=== PATIENT | male | born 1990 | race Asian ===

== ENCOUNTER 2016-08-29 15:13 | Emergency (ER) | payer OTHER ==
[~2016-08-29] VITALS: Ht 177.8 cm; Wt 54.4 kg
[~2016-08-29 15:13] MED LIST: CELLCEPT500 MG PO; MUPI2OIN2 TOP; PREDNISONE10 M1 PO; PROGRAF1 MG OR; RENVELA800 MG OR; TRAM50TA PO; TRIM800T12 PO; VITAMIN D50000 UNT PO
[2016-08-29 15:30] VITALS: BP 100/59; TEMP 97.9
== END 2016-08-29 18:01 | disposition home or self-care (01) ==
LOC: ED 15:13
DX: L02.03 Carbuncle of face (principal)
CPT/HCPCS: 99282

== ENCOUNTER 2016-09-08 15:54 | Outpatient (CLI) | payer OTHER ==
[2016-09-08 16:20] LABS: POTASSIUM 3.7 mmol/L (3.6-5.2)
[2016-09-08 16:25] LABS: PLATELET COUNT 189 K/uL (142-355)
== END 2016-09-08 19:17 | disposition home or self-care (01) ==
LOC: LABW 15:54
PROVIDERS: Nurse Practitioner Family
DX: Z79.899 Other long term (current) drug therapy (principal); Z51.81 Encounter for therapeutic drug level monitoring
CPT/HCPCS: 36415; 80053; 85027

== ENCOUNTER 2017-05-11 17:17 | Emergency (ER) | payer OTHER ==
[~2017-05-11] VITALS: Ht 165.1 cm; Wt 54.4 kg
[2017-05-11 19:42] LABS: PLATELET COUNT 183 K/uL (142-355)
[2017-05-11 20:30] VITALS: BP 105/49; TEMP 97.9
== END 2017-05-11 20:30 | disposition home or self-care (01) ==
LOC: ED 17:17
PROVIDERS: Specialist
DX: R52 Pain, unspecified (principal); N18.9 Chronic kidney disease, unspecified
CPT/HCPCS: 36415; 80048; 85027; 87804; 99283

== ENCOUNTER 2017-05-22 03:34 | Emergency (ER) | payer OTHER ==
[~2017-05-22] VITALS: Ht 165.1 cm; Wt 54.4 kg
[2017-05-22 04:09] LABS: PLATELET COUNT 138 K/uL (142-355)
[2017-05-22 04:19] LABS: POTASSIUM 4.2 mmol/L (3.6-5.2)
[2017-05-22 05:09] VITALS: BP 108/67; TEMP 98.1
== END 2017-05-22 05:12 | disposition home or self-care (01) ==
LOC: ED 03:34
PROVIDERS: Family Medicine
DX: J45.909 Unspecified asthma, uncomplicated (principal); N18.9 Chronic kidney disease, unspecified; Z94.0 Kidney transplant status; J01.00 Acute maxillary sinusitis, unspecified
CPT/HCPCS: 36415; 80053; 85027; 87081; 87804; 87880; 96372; 99283; J0696

== ENCOUNTER 2017-08-07 03:15 | Emergency (ER) | payer OTHER ==
[2017-08-07] MEDS ORDERED: RENVELA800 MG OR (16:24)
== END 2017-08-07 04:50 | disposition home or self-care (01) ==
LOC: ED 03:15
DX: R10.9 Unspecified abdominal pain (principal)

== ENCOUNTER 2017-08-07 15:37 | Inpatient (IN) | payer OTHER ==
[~2017-08-07] VITALS: Ht 157.5 cm; Wt 53.1 kg
[2017-08-07 16:21] VITALS: BP 103/64; TEMP 99
[2017-08-07] MEDS ORDERED: RENVELA800 MG OR (16:24)
[2017-08-07 17:48] LABS: PLATELET COUNT 214 K/uL (142-355)
[2017-08-07 18:00] LABS: POTASSIUM 3.6 mmol/L (3.6-5.2)
[2017-08-07 21:23] VITALS: BP 96/61; TEMP 98.3
[2017-08-07 22:58] VITALS: BP 109/69; TEMP 98.3; Ht 157.5 cm; Wt 53.1 kg
[2017-08-08] VITALS: BP 91/42; TEMP 97.4
[2017-08-08 04:00] VITALS: BP 91/49; TEMP 97.8
[2017-08-08 06:40] LABS: PLATELET COUNT 167 K/uL (142-355)
[2017-08-08 06:52] LABS: POTASSIUM 3.7 mmol/L (3.6-5.2)
[2017-08-08 08:00] VITALS: BP 90/52; TEMP 97.5
[2017-08-08 12:00] VITALS: BP 92/52; TEMP 97.8
[2017-08-08 20:00] VITALS: BP 102/53; TEMP 98.2
[2017-08-09] VITALS: BP 101/69; TEMP 98.1
[2017-08-09 04:00] VITALS: BP 100/54; TEMP 98.1
[2017-08-09 07:41] LABS: POTASSIUM 4.1 mmol/L (3.6-5.2)
[2017-08-09 07:48] LABS: PLATELET COUNT 172 K/uL (142-355)
[2017-08-09 08:09] VITALS: BP 103/79; TEMP 97.5
[2017-08-09 12:00] VITALS: BP 102/62; TEMP 97.8
[2017-08-09 16:00] VITALS: BP 102/59; TEMP 98.3
[2017-08-09 20:00] VITALS: BP 93/53; TEMP 98.2
[2017-08-10] VITALS: BP 86/39; TEMP 98.1
[2017-08-10 04:00] VITALS: BP 102/57; TEMP 97.3
[2017-08-10 05:32] LABS: PLATELET COUNT 172 K/uL (142-355)
[2017-08-10 06:00] LABS: POTASSIUM 3.9 mmol/L (3.6-5.2)
[2017-08-10 08:00] VITALS: BP 117/70; TEMP 98.3
[2017-08-10 12:22] VITALS: BP 98/50; TEMP 97.9
== END 2017-08-10 20:25 | disposition home or self-care (01) | DRG 682 ==
LOC: ED 15:37 → MED/SURG 21:47
PROVIDERS: Specialist; ADMIT Family Medicine
PROC: 5A1D70Z Performance of Urinary Filtration, Intermittent, Less than 6 Hours Per Day (ICD-10-PCS; 2017-08-08)
PROC: 5A1D70Z Performance of Urinary Filtration, Intermittent, Less than 6 Hours Per Day (ICD-10-PCS; principal; 2017-08-10)
DX: N18.6 End stage renal disease (principal); K85.90 Acute pancreatitis without necrosis or infection, unspecified; N30.81 Other cystitis with hematuria; Z87.448 Personal history of other diseases of urinary system; E83.51 Hypocalcemia; N39.0 Urinary tract infection, site not specified; B96.20 Unspecified Escherichia coli [E. coli] as the cause of diseases classified elsewhere; D64.89 Other specified anemias
CPT/HCPCS: 36415; 80053; 80307; 81000; 82150; 83690; 83735; 84100; 85027; 87077; 87086; 87088; 87186; 93005; 96375; 99283; J0885; J1644; J2175; J2405

== ENCOUNTER 2017-09-13 17:12 | Emergency (ER) | payer OTHER ==
[~2017-09-13] VITALS: Ht 165.1 cm; Wt 59.0 kg
[2017-09-13 17:32] VITALS: BP 100/58; TEMP 98
[2017-09-13 18:56] LABS: PLATELET COUNT 170 K/uL (142-355)
[2017-09-13 19:13] LABS: POTASSIUM 4.1 mmol/L (3.6-5.2)
== END 2017-09-13 19:36 | disposition home or self-care (01) ==
LOC: ED 17:12
DX: R11.2 Nausea with vomiting, unspecified (principal); R19.7 Diarrhea, unspecified; R10.13 Epigastric pain
CPT/HCPCS: 36415; 80053; 82150; 83690; 85027; 99283

== ENCOUNTER 2017-10-31 18:54 | Emergency (ER) | payer OTHER ==
[~2017-10-31] VITALS: Ht 167.6 cm; Wt 56.7 kg
[2017-10-31 19:09] VITALS: TEMP 97.3
[2017-10-31 19:44] LABS: PLATELET COUNT 246 K/uL (142-355)
[2017-10-31 20:01] LABS: POTASSIUM 3.5 mmol/L (3.6-5.2)
[2017-10-31 20:56] VITALS: BP 88/42
== END 2017-10-31 20:56 | disposition home or self-care (01) ==
LOC: ED 18:54
DX: I95.9 Hypotension, unspecified (principal); E86.1 Hypovolemia; N18.6 End stage renal disease
CPT/HCPCS: 80053; 85027; 96360; 99284

== ENCOUNTER 2017-11-05 21:16 | Emergency (ER) | payer OTHER ==
[~2017-11-05] VITALS: Ht 167.6 cm; Wt 54.4 kg
[2017-11-05 21:20] VITALS: TEMP 98.2
[2017-11-05 22:45] VITALS: BP 78/49
== END 2017-11-05 22:45 | disposition home or self-care (01) ==
LOC: ED 21:16
DX: G43.809 Other migraine, not intractable, without status migrainosus (principal)
CPT/HCPCS: 96365; 96374; 96375; 99284; J1100; J1200; J1885; J2405

== ENCOUNTER 2017-11-12 19:05 | Emergency (ER) | payer OTHER ==
[~2017-11-12] VITALS: Ht 167.6 cm; Wt 59.0 kg
[2017-11-12 21:52] LABS: PLATELET COUNT 246 K/uL (142-355)
[2017-11-12 21:57] LABS: POTASSIUM 4.1 mmol/L (3.6-5.2)
[2017-11-13 01:07] VITALS: BP 105/42; TEMP 98.5
== END 2017-11-13 01:10 | disposition home or self-care (01) ==
LOC: ED 19:05
PROVIDERS: Specialist
DX: N30.80 Other cystitis without hematuria (principal); R10.84 Generalized abdominal pain
CPT/HCPCS: 80053; 82150; 83690; 83735; 84100; 85027; 96372; 96374; 96375; 99283; J1170; J2405; J3370; Q9963

== ENCOUNTER 2017-11-14 21:21 | Emergency (ER) | payer OTHER ==
[~2017-11-14] VITALS: Ht 167.6 cm; Wt 54.0 kg
[2017-11-14 21:31] VITALS: TEMP 98.4
[2017-11-14 22:26] LABS: PLATELET COUNT 78 K/uL (142-355)
[2017-11-14 22:51] LABS: POTASSIUM 4.1 mmol/L (3.6-5.2)
[2017-11-14 23:18] VITALS: BP 105/60
== END 2017-11-14 23:18 | disposition home or self-care (01) ==
LOC: ED 21:21
DX: K29.70 Gastritis, unspecified, without bleeding (principal)
CPT/HCPCS: 36415; 80053; 82150; 83690; 85027; 99283

== ENCOUNTER 2018-01-04 18:06 | Outpatient (CLI) | payer OTHER | END 2018-01-04 18:11 | disposition short-term general hospital (02) | LOC: AMB 18:06 | DX: R55 Syncope and collapse (principal) | CPT/HCPCS: A0425; A0429 ==

== ENCOUNTER 2018-01-04 18:13 | Emergency (ER) | payer OTHER ==
[~2018-01-04] VITALS: Ht 165.1 cm; Wt 54.4 kg
[2018-01-04 18:15] VITALS: TEMP 97.9
[2018-01-04 20:42] VITALS: BP 80/71
== END 2018-01-04 20:42 | disposition home or self-care (01) ==
LOC: ED 18:13
DX: E86.0 Dehydration (principal); I95.89 Other hypotension
CPT/HCPCS: 96361; 96365; 96374; 99284; J1885

== ENCOUNTER 2018-03-12 08:57 | Emergency (ER) | payer OTHER ==
[~2018-03-12] VITALS: Ht 165.1 cm; Wt 54.4 kg
[2018-03-12 09:00] VITALS: TEMP 97.9
[2018-03-12 09:36] LABS: PLATELET COUNT 192 K/uL (142-355)
[2018-03-12 09:50] LABS: POTASSIUM 4.5 mmol/L (3.6-5.2)
[2018-03-12 10:30] VITALS: BP 102/58
== END 2018-03-12 10:30 | disposition home or self-care (01) ==
LOC: ED 08:57
PROVIDERS: Family Medicine
DX: J06.9 Acute upper respiratory infection, unspecified (principal); J20.9 Acute bronchitis, unspecified
CPT/HCPCS: 80053; 85027; 94664; 96372; 99283; J2930

== ENCOUNTER 2018-05-02 01:40 | Emergency (ER) | payer OTHER ==
[~2018-05-02] VITALS: Ht 165.1 cm; Wt 74.8 kg
[2018-05-02 02:16] LABS: PLATELET COUNT 284 K/uL (142-355)
[2018-05-02 02:35] LABS: POTASSIUM 4.3 mmol/L (3.6-5.2)
[2018-05-02 06:35] VITALS: BP 110/71; TEMP 97.8
== END 2018-05-02 06:35 | disposition home or self-care (01) ==
LOC: ED 01:40
DX: N30.00 Acute cystitis without hematuria (principal)
CPT/HCPCS: 36415; 80053; 85027; 96365; 96375; 99284; J0696; J2175; Q9963

== ENCOUNTER 2018-06-04 13:52 | Emergency (ER) | payer OTHER ==
[~2018-06-04] VITALS: Ht 165.1 cm; Wt 74.8 kg
[2018-06-04 16:02] LABS: PLATELET COUNT 184 K/uL (142-355)
[2018-06-04 16:14] LABS: POTASSIUM 4.2 mmol/L (3.6-5.2)
[2018-06-04 17:18] VITALS: BP 106/67; TEMP 98.2
== END 2018-06-04 17:19 | disposition home or self-care (01) ==
LOC: ED 13:52
PROVIDERS: Family Medicine
DX: S39.011A Strain of muscle, fascia and tendon of abdomen, initial encounter (principal)
CPT/HCPCS: 80053; 85027; 99283

== ENCOUNTER 2018-07-07 09:32 | Outpatient (CLI) | payer OTHER ==
[2018-07-07] MEDS ORDERED: ENTERIC COATED325 MG PO (09:58)
[2018-07-07] MEDS ORDERED: CALC667T2 PO (09:59)
[2018-07-07] MEDS ORDERED: MONDOXYNE NL100 MG PO (10:00)
[2018-07-07] MEDS ORDERED: MEGACE ES PO (10:01)
[2018-07-07] MEDS ORDERED: PREDNISONE5 MG PO (10:01)
[2018-07-07] MEDS ORDERED: TRAMADOL HYDROC50 MG PO (10:02)
[2018-07-07] MEDS ORDERED: TUMS500 MG PO (10:03)
[2018-07-07] MEDS ORDERED: MIDODRINE5 MG PO (10:04)
== END 2018-07-07 09:34 | disposition short-term general hospital (02) ==
LOC: AMB 09:32
DX: R07.89 Other chest pain (principal)
CPT/HCPCS: A0425; A0429

== ENCOUNTER 2018-07-07 09:39 | Emergency (ER) | payer OTHER ==
[~2018-07-07] VITALS: Ht 165.1 cm; Wt 51.0 kg
[2018-07-07 09:39] VITALS: TEMP 97.8
[2018-07-07] MEDS ORDERED: ENTERIC COATED325 MG PO (09:58)
[2018-07-07] MEDS ORDERED: CALC667T2 PO (09:59)
[2018-07-07] MEDS ORDERED: MONDOXYNE NL100 MG PO (10:00)
[2018-07-07] MEDS ORDERED: PREDNISONE5 MG PO (10:01)
[2018-07-07] MEDS ORDERED: MEGACE ES PO (10:01)
[2018-07-07] MEDS ORDERED: TRAMADOL HYDROC50 MG PO (10:02)
[2018-07-07] MEDS ORDERED: TUMS500 MG PO (10:03)
[2018-07-07] MEDS ORDERED: MIDODRINE5 MG PO (10:04)
[2018-07-07 10:59] LABS: PLATELET COUNT 188 K/uL (142-355)
[2018-07-07 11:39] LABS: POTASSIUM 3.1 mmol/L (3.6-5.2); SODIUM 136 mmol/L (136-145)
[2018-07-07 12:20] VITALS: BP 87/53
== END 2018-07-07 12:20 | disposition home or self-care (01) ==
LOC: ED 09:39
DX: R07.89 Other chest pain (principal); E87.6 Hypokalemia
CPT/HCPCS: 36415; 80053; 82550; 82553; 84484; 85027; 93005; 99284

== ENCOUNTER 2018-08-10 08:00 | Emergency (ER) | payer OTHER ==
[~2018-08-10] VITALS: Ht 165.1 cm; Wt 72.6 kg
[~2018-08-10 08:00] MED LIST changes: +CALC667T2 PO; +ENTERIC COATED325 MG PO; +MEGACE ES PO; +MIDODRINE5 MG PO; +MONDOXYNE NL100 MG PO; +PREDNISONE5 MG PO; +TRAMADOL HYDROC50 MG PO; +TUMS500 MG PO
[2018-08-10 08:28] VITALS: TEMP 97.6
[2018-08-10 09:19] VITALS: BP 100/59
== END 2018-08-10 09:19 | disposition home or self-care (01) ==
LOC: ED 08:00
DX: M79.18 Myalgia, other site (principal); M25.512 Pain in left shoulder; M25.511 Pain in right shoulder
CPT/HCPCS: 99281

== ENCOUNTER 2018-09-06 19:20 | Emergency (ER) | payer OTHER ==
[~2018-09-06] VITALS: Ht 165.1 cm; Wt 50.8 kg
[2018-09-06 19:25] VITALS: BP 90/48; TEMP 98.3
== END 2018-09-06 20:02 | disposition home or self-care (01) ==
LOC: ED 19:20
DX: L72.3 Sebaceous cyst (principal)
CPT/HCPCS: 99281

== ENCOUNTER 2018-11-11 17:25 | Emergency (ER) | payer OTHER ==
[~2018-11-11] VITALS: Ht 167.6 cm; Wt 54.4 kg
[2018-11-11 18:23] LABS: PLATELET COUNT 204 K/uL (142-355)
[2018-11-11 18:36] LABS: POTASSIUM 3.9 mmol/L (3.6-5.2)
[2018-11-11 18:51] VITALS: TEMP 98.3
[2018-11-11 19:08] VITALS: BP 85/47
== END 2018-11-11 19:17 | disposition home or self-care (01) ==
LOC: ED 17:25
PROVIDERS: Family Medicine
DX: R10.84 Generalized abdominal pain (principal); R19.7 Diarrhea, unspecified; N18.6 End stage renal disease; Z99.2 Dependence on renal dialysis
CPT/HCPCS: 36415; 80053; 82150; 83690; 85027; 99283

== ENCOUNTER 2018-11-26 12:10 | Emergency (ER) | payer OTHER ==
[~2018-11-26] VITALS: Ht 167.6 cm; Wt 59.0 kg
[2018-11-26 12:15] VITALS: TEMP 97.5
[2018-11-26 13:29] LABS: PLATELET COUNT 217 K/uL (142-355)
[2018-11-26 13:42] LABS: POTASSIUM 4.3 mmol/L (3.6-5.2)
[2018-11-26 15:01] VITALS: BP 101/68
== END 2018-11-26 15:01 | disposition home or self-care (01) ==
LOC: ED 12:10
PROVIDERS: Family Medicine
PROC: 0H98XZZ Drainage of Buttock Skin, External Approach (ICD-10-PCS; principal; 2018-11-26)
DX: L02.31 Cutaneous abscess of buttock (principal); Z99.2 Dependence on renal dialysis
CPT/HCPCS: 80053; 85027; 87070; 87205; 99283; J2001

== ENCOUNTER 2019-02-10 21:17 | Emergency (ER) | payer OTHER ==
[~2019-02-10] VITALS: Ht 167.6 cm; Wt 52.2 kg
[2019-02-10 22:30] VITALS: BP 110/56; TEMP 98.2
== END 2019-02-10 22:30 | disposition home or self-care (01) ==
LOC: ED 21:17
DX: L01.09 Other impetigo (principal)
CPT/HCPCS: 99282; 99283

== ENCOUNTER 2019-03-09 13:29 | Emergency (ER) | payer OTHER ==
[~2019-03-09] VITALS: Ht 167.6 cm; Wt 52.2 kg
[2019-03-09 14:43] LABS: PLATELET COUNT 268 K/uL (142-355)
[2019-03-09 15:02] LABS: POTASSIUM 2.7 mmol/L (3.6-5.2); SODIUM 137 mmol/L (136-145)
[2019-03-09 18:20] VITALS: BP 77/42; TEMP 98.1
== END 2019-03-09 18:30 | disposition home or self-care (01) ==
LOC: ED 13:29
PROVIDERS: Family Medicine
DX: I95.9 Hypotension, unspecified (principal); E87.6 Hypokalemia; N18.6 End stage renal disease; Z99.2 Dependence on renal dialysis; R00.0 Tachycardia, unspecified; I45.81 Long QT syndrome
CPT/HCPCS: 80053; 84484; 85027; 93005; 96360; 96361; 99284

== ENCOUNTER 2019-03-22 15:57 | Outpatient (CLI) | payer OTHER | END 2019-03-22 19:33 | disposition home or self-care (01) | LOC: RAD 15:57 | DX: R05 Cough (principal); R68.89 Other general symptoms and signs; R07.1 Chest pain on breathing ==

== ENCOUNTER 2019-07-04 13:12 | Outpatient (CLI) | payer OTHER | END 2019-07-04 13:14 | disposition short-term general hospital (02) | LOC: AMB 13:12 | DX: R53.1 Weakness (principal) | CPT/HCPCS: A0425; A0429 ==

== ENCOUNTER 2019-07-04 13:20 | Emergency (ER) | payer OTHER ==
[~2019-07-04] VITALS: Ht 167.6 cm; Wt 52.2 kg
[2019-07-04 13:25] VITALS: TEMP 97.7
[2019-07-04 14:12] LABS: PLATELET COUNT 262 K/uL (142-355)
[2019-07-04 14:22] LABS: POTASSIUM 4.6 mmol/L (3.6-5.2)
[2019-07-04 15:02] VITALS: BP 108/68
== END 2019-07-04 15:02 | disposition home or self-care (01) ==
LOC: ED 13:20
PROVIDERS: Emergency Medicine
DX: T80.89XA Other complications following infusion, transfusion and therapeutic injection, initial encounter (principal); R53.1 Weakness; Z99.2 Dependence on renal dialysis
CPT/HCPCS: 36415; 80053; 85027; 96360; 99284

== ENCOUNTER 2019-08-22 14:42 | Outpatient (CLI) | payer OTHER | END 2019-08-22 19:31 | disposition home or self-care (01) | LOC: LAB 14:42 | DX: E83.39 Other disorders of phosphorus metabolism (principal) | CPT/HCPCS: 84100 ==

== ENCOUNTER 2019-09-13 21:22 | Emergency (ER) | payer OTHER ==
[~2019-09-13] VITALS: Ht 167.6 cm; Wt 54.4 kg
[2019-09-13 22:22] LABS: PLATELET COUNT 321 K/uL (142-355)
[2019-09-13 23:38] LABS: POTASSIUM 7.7 mmol/L (3.6-5.2)
[2019-09-14 00:30] VITALS: BP 105/51; TEMP 98
== END 2019-09-14 00:35 | disposition short-term general hospital (02) ==
LOC: ED 21:22
PROVIDERS: Emergency Medicine
DX: R11.2 Nausea with vomiting, unspecified (principal); Z99.2 Dependence on renal dialysis; E87.5 Hyperkalemia; Z94.0 Kidney transplant status
CPT/HCPCS: 80053; 83605; 83880; 85027; 87040; 87502; 87651; 93005; 94664; 96360; 96361; 96375; 99284; J0610; J1815; J7060

== ENCOUNTER 2019-10-08 15:04 | Outpatient (CLI) | payer OTHER | END 2019-10-08 22:58 | disposition home or self-care (01) | LOC: LAB 15:04 | DX: D64.9 Anemia, unspecified (principal) | CPT/HCPCS: 85018 ==

== ENCOUNTER 2019-10-17 16:01 | Outpatient (CLI) | payer OTHER | END 2019-10-17 22:58 | disposition home or self-care (01) | LOC: LAB 16:01 | DX: D64.9 Anemia, unspecified (principal) | CPT/HCPCS: 85018 ==

== ENCOUNTER 2019-10-31 15:09 | Outpatient (CLI) | payer OTHER | END 2019-10-31 20:58 | disposition home or self-care (01) | LOC: LAB 15:09 | DX: D64.9 Anemia, unspecified (principal) | CPT/HCPCS: 85014; 85018 ==

== ENCOUNTER 2019-11-14 14:00 | Emergency (ER) | payer OTHER ==
[~2019-11-14] VITALS: Ht 167.6 cm; Wt 54.4 kg
[2019-11-14 14:00] VITALS: TEMP 97.3
[2019-11-14 14:47] LABS: PLATELET COUNT 208 K/uL (142-355)
[2019-11-14 14:52] LABS: POTASSIUM 4.4 mmol/L (3.6-5.2)
[2019-11-14 15:27] VITALS: BP 133/91
== END 2019-11-14 15:27 | disposition home or self-care (01) ==
LOC: ED 14:00
PROVIDERS: Emergency Medicine
DX: E83.51 Hypocalcemia (principal); R41.82 Altered mental status, unspecified; N28.9 Disorder of kidney and ureter, unspecified; Z99.2 Dependence on renal dialysis
CPT/HCPCS: 80053; 85027; 93005; 99284

== ENCOUNTER 2020-01-13 20:11 | Emergency (ER) | payer OTHER ==
[~2020-01-13] VITALS: Ht 167.6 cm; Wt 54.4 kg
[2020-01-13 20:56] LABS: PLATELET COUNT 241 K/uL (142-355)
[2020-01-13 21:03] LABS: POTASSIUM 8.1 mmol/L (3.6-5.2)
[2020-01-13 21:54] VITALS: BP 130/71; TEMP 98.9
== END 2020-01-13 21:54 | disposition home or self-care (01) ==
LOC: ED 20:11
PROVIDERS: Hospitalist
DX: J06.9 Acute upper respiratory infection, unspecified (principal); N18.6 End stage renal disease; Z99.2 Dependence on renal dialysis; F17.210 Nicotine dependence, cigarettes, uncomplicated; Z20.828 Contact with and (suspected) exposure to other viral communicable diseases
CPT/HCPCS: 36415; 80048; 85027; 87502; 87635; 87651; 96374; 99284; J1885; U0003

== ENCOUNTER 2020-02-01 03:46 | Emergency (ER) | payer OTHER ==
[~2020-02-01] VITALS: Ht 167.6 cm; Wt 45.4 kg
[2020-02-01 04:50] LABS: PLATELET COUNT 263 K/uL (142-355)
[2020-02-01 05:04] LABS: PARTIAL THROMBOPLASTIN TIME 33.6 SECONDS (24.5-33.6)
[2020-02-01 05:36] LABS: SODIUM 130 mmol/L (136-145)
[2020-02-01 05:39] LABS: POTASSIUM 7.7 mmol/L (3.6-5.2)
[2020-02-01 06:25] VITALS: BP 142/88; TEMP 98.2
== END 2020-02-01 06:25 | disposition home or self-care (01) ==
LOC: ED 03:46
PROVIDERS: Hospitalist
DX: J40 Bronchitis, not specified as acute or chronic (principal); J06.9 Acute upper respiratory infection, unspecified; N18.6 End stage renal disease; Z99.2 Dependence on renal dialysis; E87.5 Hyperkalemia; F17.210 Nicotine dependence, cigarettes, uncomplicated
CPT/HCPCS: 80053; 82550; 82553; 83880; 84484; 85027; 85610; 85730; 93005; 96365; 96375; 99284; J0696; J2930

== ENCOUNTER 2020-02-15 15:45 | Outpatient (CLI) | payer OTHER | END 2020-02-15 20:55 | disposition home or self-care (01) | LOC: LAB 15:45 | PROVIDERS: Internal Medicine Nephrology | DX: E87.5 Hyperkalemia (principal); E83.51 Hypocalcemia | CPT/HCPCS: 82310; 84132 ==

== ENCOUNTER 2020-03-24 14:56 | Outpatient (CLI) | payer OTHER | END 2020-03-24 23:37 | disposition home or self-care (01) | LOC: LAB 14:56 | DX: E87.5 Hyperkalemia (principal) | CPT/HCPCS: 84132 ==

== ENCOUNTER 2020-06-06 11:50 | Emergency (ER) | payer OTHER ==
[~2020-06-06] VITALS: Ht 162.6 cm; Wt 52.2 kg
[2020-06-06 12:54] LABS: PLATELET COUNT 330 K/uL (142-355)
[2020-06-06 13:19] LABS: POTASSIUM 3.7 mmol/L (3.6-5.2); SODIUM 134 mmol/L (136-145)
[2020-06-06 20:10] VITALS: BP 94/33; TEMP 98.1
== END 2020-06-06 20:14 | disposition home or self-care (01) ==
LOC: ED 11:50
PROVIDERS: Family Medicine
DX: I95.89 Other hypotension (principal); N18.6 End stage renal disease; Z99.2 Dependence on renal dialysis; R07.89 Other chest pain
CPT/HCPCS: 36415; 80053; 82550; 84484; 85027; 93005; 96360; 96361; 96365; 96374; 96375; 99284; J1720

== ENCOUNTER 2020-07-02 15:20 | Outpatient (CLI) | payer OTHER | END 2020-07-02 21:48 | disposition home or self-care (01) | LOC: LAB 15:20 | PROVIDERS: ATTEND Physician Assistant Medical | DX: D64.89 Other specified anemias (principal) | CPT/HCPCS: 85014; 85018 ==

== ENCOUNTER 2020-07-09 14:54 | Outpatient (CLI) | payer OTHER | END 2020-07-09 19:47 | disposition home or self-care (01) | LOC: LAB 14:54 | PROVIDERS: ATTEND Physician Assistant Medical | DX: D64.89 Other specified anemias (principal) | CPT/HCPCS: 85014; 85018 ==

== ENCOUNTER 2020-07-30 14:28 | Outpatient (CLI) | payer OTHER | END 2020-07-30 21:58 | disposition home or self-care (01) | LOC: LAB 14:28 | PROVIDERS: ATTEND Physician Assistant Medical | DX: D64.9 Anemia, unspecified (principal) | CPT/HCPCS: 85014; 85018 ==

== ENCOUNTER 2020-08-13 15:00 | Outpatient (CLI) | payer OTHER | END 2020-08-13 22:06 | disposition home or self-care (01) | LOC: LAB 15:00 | PROVIDERS: ATTEND Physician Assistant Medical | DX: D64.89 Other specified anemias (principal) | CPT/HCPCS: 85014; 85018 ==

== ENCOUNTER 2020-12-29 02:12 | Emergency (ER) | payer OTHER ==
[~2020-12-29] VITALS: Ht 162.6 cm; Wt 56.7 kg
[2020-12-29 03:06] LABS: PLATELET COUNT 322 K/uL (142-355)
[2020-12-29 03:23] LABS: SODIUM 136 mmol/L (136-145)
[2020-12-29 03:30] LABS: POTASSIUM 6.8 mmol/L (3.6-5.2)
[2020-12-29 03:39] LABS: PARTIAL THROMBOPLASTIN TIME 30.8 SECONDS (24.5-33.6)
[2020-12-29 06:42] VITALS: BP 135/93; TEMP 98.6
== END 2020-12-29 06:42 ==
LOC: ED 02:12
PROVIDERS: Hospitalist
DX: N18.6 End stage renal disease (principal); Z99.2 Dependence on renal dialysis; E87.5 Hyperkalemia; Z20.822 Contact with and (suspected) exposure to COVID-19
CPT/HCPCS: 80053; 80320; 82150; 82550; 82553; 83690; 83880; 84484; 85027; 85610; 85730; 87635; 87651; 93005; 96374; 96375; 96376; 99284; J1815; J1885; J2405; J2930; J3490; J7060; U0003

== ENCOUNTER 2021-03-23 17:41 | Emergency (ER) | payer OTHER ==
[~2021-03-23] VITALS: Ht 162.6 cm; Wt 56.7 kg
[2021-03-23 19:41] LABS: PLATELET COUNT 420 K/uL (142-355)
[2021-03-23 19:57] LABS: POTASSIUM 7.1 mmol/L (3.6-5.2)
[2021-03-23 23:16] LABS: POTASSIUM 5.2 mmol/L (3.6-5.2)
[2021-03-24 06:12] VITALS: BP 139/90; TEMP 98.4
== END 2021-03-24 06:12 | disposition home or self-care (01) ==
LOC: ED 17:41
PROVIDERS: Emergency Medicine Emergency Medical Services
DX: E87.5 Hyperkalemia (principal); R10.33 Periumbilical pain; Z91.15 Patient's noncompliance with renal dialysis; Z20.822 Contact with and (suspected) exposure to COVID-19
CPT/HCPCS: 36415; 36600; 80053; 82150; 82805; 83690; 85027; 87635; 93005; 94640; 94664; 96360; 96375; 99284; J0610; J1815; J2405; J7060; U0003

== ENCOUNTER 2021-05-23 03:23 | Emergency (ER) | payer OTHER ==
[~2021-05-23] VITALS: Ht 162.6 cm; Wt 56.7 kg
[2021-05-23 04:04] LABS: PLATELET COUNT 282 K/uL (142-355)
[2021-05-23 04:13] LABS: POTASSIUM 5.2 mmol/L (3.6-5.2)
[2021-05-23 04:45] VITALS: BP 128/88; TEMP 98.3
== END 2021-05-23 04:45 | disposition home or self-care (01) ==
LOC: ED 03:23
PROVIDERS: Hospitalist
DX: J40 Bronchitis, not specified as acute or chronic (principal); J44.9 Chronic obstructive pulmonary disease, unspecified; N18.6 End stage renal disease; Z99.2 Dependence on renal dialysis; Z20.822 Contact with and (suspected) exposure to COVID-19; F17.210 Nicotine dependence, cigarettes, uncomplicated
CPT/HCPCS: 36415; 80053; 85027; 87635; 87651; 96372; 99283; J0696; J2930; U0003

== ENCOUNTER 2021-06-21 11:17 | Emergency (ER) | payer OTHER ==
[~2021-06-21] VITALS: Ht 165.1 cm; Wt 54.4 kg
[2021-06-21 12:02] LABS: POTASSIUM 5.7 mmol/L (3.6-5.2)
[2021-06-21 12:03] LABS: PLATELET COUNT 327 K/uL (142-355)
[2021-06-21 12:06] LABS: PARTIAL THROMBOPLASTIN TIME 31.6 SECONDS (24.5-33.6)
[2021-06-22 05:57] LABS: POTASSIUM 6.6 mmol/L (3.6-5.2)
[2021-06-22 08:08] VITALS: TEMP 98
[2021-06-22 11:22] LABS: POTASSIUM 5.5 mmol/L (3.6-5.2)
[2021-06-22 13:00] VITALS: BP 140/92
== END 2021-06-22 14:06 | disposition short-term general hospital (02) ==
LOC: ED 11:17
PROVIDERS: Emergency Medicine Emergency Medical Services; Hospitalist
DX: J18.9 Pneumonia, unspecified organism (principal); K92.0 Hematemesis; N18.6 End stage renal disease; Z99.2 Dependence on renal dialysis; F17.210 Nicotine dependence, cigarettes, uncomplicated; Z11.52 Encounter for screening for COVID-19
CPT/HCPCS: 36415; 80048; 80053; 80320; 83690; 85027; 85610; 85730; 87635; 96360; 96365; 96375; 99284; J1815; J1885; J1956; J2270; J2405; J3370; J3490; J7060; U0003

== ENCOUNTER 2021-06-29 17:23 | Emergency (ER) | payer OTHER ==
[~2021-06-29] VITALS: Ht 165.1 cm; Wt 54.4 kg
[2021-06-29 17:42] LABS: PLATELET COUNT 503 K/uL (142-355)
[2021-06-29 18:31] LABS: POTASSIUM 4.5 mmol/L (3.6-5.2)
[2021-06-29 19:49] VITALS: BP 132/92; TEMP 97.9
== END 2021-06-29 19:49 | disposition home or self-care (01) ==
LOC: ED 17:23
PROVIDERS: Emergency Medicine
DX: R06.02 Shortness of breath (principal); Z20.822 Contact with and (suspected) exposure to COVID-19; R07.89 Other chest pain; N18.6 End stage renal disease; Z99.2 Dependence on renal dialysis
CPT/HCPCS: 80048; 84484; 85027; 85379; 87635; 93005; 99283; 99284; U0003

== ENCOUNTER 2021-08-23 20:05 | Emergency (ER) | payer OTHER ==
[~2021-08-23] VITALS: Ht 165.1 cm; Wt 59.0 kg
[2021-08-23 21:33] LABS: PLATELET COUNT 309 K/uL (142-355)
[2021-08-23 21:51] LABS: POTASSIUM 6.2 mmol/L (3.6-5.2)
[2021-08-24 05:23] LABS: POTASSIUM 6.4 mmol/L (3.6-5.2)
[2021-08-24 08:10] VITALS: BP 164/89; TEMP 97.5
== END 2021-08-24 08:15 | disposition short-term general hospital (02) ==
LOC: ED 20:05
PROVIDERS: Emergency Medicine Emergency Medical Services
DX: T82.868A Thrombosis due to vascular prosthetic devices, implants and grafts, initial encounter (principal); N18.6 End stage renal disease; Z99.2 Dependence on renal dialysis; E87.5 Hyperkalemia; Z11.52 Encounter for screening for COVID-19; Y83.2 Surgical operation with anastomosis, bypass or graft as the cause of abnormal reaction of the patient, or of later complication, without mention of misadventure at the time of the procedure; Y92.89 Other specified places as the place of occurrence of the external cause
CPT/HCPCS: 36415; 80048; 80053; 83735; 84484; 85027; 87635; 93005; 96374; 96375; 96376; 99284; J0610; J1815; J2270; J2405; J7060; U0003

== ENCOUNTER 2021-09-29 10:49 | Emergency (ER) | payer OTHER ==
[~2021-09-29] VITALS: Ht 165.1 cm; Wt 59.0 kg
[2021-09-29 10:50] VITALS: TEMP 97.8
[2021-09-29 12:58] LABS: PLATELET COUNT 248 K/uL (142-355)
[2021-09-29 13:11] VITALS: BP 144/91
[2021-09-29 13:12] LABS: POTASSIUM 3.6 mmol/L (3.6-5.2)
[2021-09-29] MEDS ORDERED: AMOX500T5 PO (13:49)
== END 2021-09-29 15:51 | disposition home or self-care (01) ==
LOC: ED 10:49
PROVIDERS: Emergency Medicine
DX: N39.0 Urinary tract infection, site not specified (principal); N18.6 End stage renal disease; Z99.2 Dependence on renal dialysis
CPT/HCPCS: 80048; 85027; 99283

== ENCOUNTER 2021-10-13 22:36 | Emergency (ER) | payer OTHER ==
[~2021-10-13] VITALS: Ht 165.1 cm; Wt 59.0 kg
[~2021-10-13 22:36] MED LIST changes: +AMOX500T5 PO
[2021-10-13 22:58] VITALS: TEMP 98.8
[2021-10-13 23:02] LABS: PLATELET COUNT 271 K/uL (142-355)
[2021-10-13 23:18] LABS: POTASSIUM 6.2 mmol/L (3.6-5.2)
[2021-10-14 05:00] VITALS: BP 194/109
== END 2021-10-14 06:15 | disposition short-term general hospital (02) ==
LOC: ED 22:36
PROVIDERS: Emergency Medicine
DX: N18.6 End stage renal disease (principal); Z99.2 Dependence on renal dialysis; R11.2 Nausea with vomiting, unspecified; R19.7 Diarrhea, unspecified; Z53.29 Procedure and treatment not carried out because of patient's decision for other reasons; Z20.822 Contact with and (suspected) exposure to COVID-19
CPT/HCPCS: 36415; 80053; 85027; 87635; 96365; 96375; 99284; J0610; J1815; J2405; J3490; J7060; U0003

== ENCOUNTER 2021-11-09 13:47 | Emergency (ER) | payer OTHER ==
[~2021-11-09] VITALS: Ht 165.1 cm; Wt 59.0 kg
[2021-11-09 14:10] LABS: PLATELET COUNT 319 K/uL (142-355)
[2021-11-09 14:17] LABS: POTASSIUM 3.7 mmol/L (3.6-5.2)
[2021-11-09 20:30] VITALS: BP 178/90; TEMP 97.2
== END 2021-11-09 20:30 ==
LOC: ED 13:47
PROVIDERS: Emergency Medicine Emergency Medical Services
DX: E11.649 Type 2 diabetes mellitus with hypoglycemia without coma (principal); Z79.4 Long term (current) use of insulin
CPT/HCPCS: 80048; 82948; 83735; 85027; 96365; 96366; 96375; 99284; J7060

== ENCOUNTER 2021-11-24 12:30 | Emergency (ER) | payer OTHER ==
[~2021-11-24] VITALS: Ht 165.1 cm; Wt 59.0 kg
[2021-11-24 13:10] LABS: PLATELET COUNT 271 K/uL (142-355)
[2021-11-24 13:27] LABS: POTASSIUM 3.5 mmol/L (3.6-5.2)
[2021-11-24 16:21] VITALS: BP 185/115; TEMP 98.7
== END 2021-11-24 16:24 | disposition home or self-care (01) ==
LOC: ED 12:30
PROVIDERS: Emergency Medicine Emergency Medical Services
DX: R55 Syncope and collapse (principal)
CPT/HCPCS: 80053; 83735; 85027; 93005; 96360; 96376; 99284; J7060

== ENCOUNTER 2021-12-01 11:38 | Emergency (ER) | payer OTHER ==
[~2021-12-01] VITALS: Ht 165.1 cm; Wt 59.0 kg
[2021-12-01 11:57] LABS: PLATELET COUNT 321 K/uL (142-355)
[2021-12-01 12:13] LABS: POTASSIUM 3.4 mmol/L (3.6-5.2)
[2021-12-01 16:30] VITALS: BP 169/102; TEMP 97.9
== END 2021-12-01 16:30 | disposition home or self-care (01) ==
LOC: ED 11:38
PROVIDERS: Emergency Medicine
DX: E11.649 Type 2 diabetes mellitus with hypoglycemia without coma (principal); Z79.4 Long term (current) use of insulin; N18.6 End stage renal disease; Z99.2 Dependence on renal dialysis; I12.0 Hypertensive chronic kidney disease with stage 5 chronic kidney disease or end stage renal disease; F17.210 Nicotine dependence, cigarettes, uncomplicated
CPT/HCPCS: 80048; 82948; 85027; 96374; 99284; J0360; J7060

== ENCOUNTER 2021-12-15 19:23 | Emergency (ER) | payer OTHER ==
[~2021-12-15] VITALS: Ht 165.1 cm; Wt 54.4 kg
[2021-12-15 20:01] LABS: PLATELET COUNT 232 K/uL (142-355)
[2021-12-15 20:09] LABS: PARTIAL THROMBOPLASTIN TIME 34.5 SECONDS (24.5-33.6)
[2021-12-15 20:26] LABS: POTASSIUM 5.3 mmol/L (3.6-5.2)
[2021-12-15 22:15] VITALS: BP 123/84; TEMP 100.1
== END 2021-12-15 22:15 | disposition short-term general hospital (02) ==
LOC: ED 19:23
PROVIDERS: Emergency Medicine
DX: R79.89 Other specified abnormal findings of blood chemistry (principal); E11.22 Type 2 diabetes mellitus with diabetic chronic kidney disease; N18.6 End stage renal disease; Z99.2 Dependence on renal dialysis; Z79.4 Long term (current) use of insulin; Z11.52 Encounter for screening for COVID-19
CPT/HCPCS: 36415; 80053; 83605; 83880; 84484; 85027; 85379; 85610; 85730; 87635; 93005; 96374; 96375; 99284; J2270; J2405; U0003

== ENCOUNTER 2022-01-01 06:26 | Emergency (ER) | payer OTHER ==
[~2022-01-01] VITALS: Ht 165.1 cm; Wt 59.0 kg
[2022-01-01 08:19] VITALS: BP 152/97; TEMP 98.5
== END 2022-01-01 08:20 | disposition home or self-care (01) ==
LOC: ED 06:26
DX: I12.0 Hypertensive chronic kidney disease with stage 5 chronic kidney disease or end stage renal disease (principal); N18.6 End stage renal disease; Z99.2 Dependence on renal dialysis; E11.9 Type 2 diabetes mellitus without complications; Z79.4 Long term (current) use of insulin; R10.32 Left lower quadrant pain; R10.31 Right lower quadrant pain
CPT/HCPCS: 99282

== ENCOUNTER 2022-01-14 13:07 | Emergency (ER) | payer OTHER ==
[~2022-01-14] VITALS: Ht 165.1 cm; Wt 59.0 kg
[2022-01-14 16:45] LABS: PLATELET COUNT 335 K/uL (142-355)
[2022-01-14 16:59] LABS: POTASSIUM 4.7 mmol/L (3.6-5.2)
[2022-01-14 17:34] LABS: PARTIAL THROMBOPLASTIN TIME 28.9 SECONDS (24.5-33.6)
[2022-01-14 19:20] VITALS: BP 153/102; TEMP 98.1
== END 2022-01-14 19:20 | disposition short-term general hospital (02) ==
LOC: ED 13:07
PROVIDERS: Emergency Medicine
DX: I16.1 Hypertensive emergency (principal); N18.6 End stage renal disease; Z99.2 Dependence on renal dialysis; R91.8 Other nonspecific abnormal finding of lung field; Z11.52 Encounter for screening for COVID-19; F17.210 Nicotine dependence, cigarettes, uncomplicated
CPT/HCPCS: 36415; 80053; 83880; 84484; 85027; 85610; 85730; 87635; 93005; 96360; 96365; 99284; J3490; U0003

== ENCOUNTER 2022-01-29 04:06 | Emergency (ER) | payer OTHER ==
[~2022-01-29] VITALS: Ht 165.1 cm; Wt 59.0 kg
[2022-01-29 04:10] VITALS: TEMP 98
[2022-01-29 04:57] LABS: PLATELET COUNT 288 K/uL (142-355)
[2022-01-29 05:07] LABS: POTASSIUM 4.5 mmol/L (3.6-5.2)
[2022-01-29 07:00] VITALS: BP 199/131
== END 2022-01-29 09:14 | disposition short-term general hospital (02) ==
LOC: ED 04:06
PROVIDERS: Emergency Medicine
DX: N18.6 End stage renal disease (principal); Z99.2 Dependence on renal dialysis; Z91.15 Patient's noncompliance with renal dialysis; R91.8 Other nonspecific abnormal finding of lung field; I10 Essential (primary) hypertension; Z11.52 Encounter for screening for COVID-19; F17.210 Nicotine dependence, cigarettes, uncomplicated
CPT/HCPCS: 36415; 80048; 83735; 84100; 85027; 87635; 93005; 96365; 96366; 96372; 96375; 99285; J0360; J1200; J2060; J3486; J3490; U0003

== ENCOUNTER 2022-02-04 10:15 | Emergency (ER) | payer OTHER ==
[~2022-02-04] VITALS: Ht 165.1 cm; Wt 59.0 kg
[2022-02-04 11:40] LABS: PLATELET COUNT 228 K/uL (142-355)
[2022-02-04 11:58] LABS: POTASSIUM 3.7 mmol/L (3.6-5.2)
[2022-02-04 12:05] LABS: PARTIAL THROMBOPLASTIN TIME 31.5 SECONDS (24.5-33.6)
[2022-02-04 14:35] VITALS: BP 171/131; TEMP 98.3
== END 2022-02-04 14:35 | disposition still patient (30) ==
LOC: ED 10:15
PROVIDERS: Hospitalist
DX: R10.84 Generalized abdominal pain (principal); I10 Essential (primary) hypertension; N18.6 End stage renal disease; Z99.2 Dependence on renal dialysis; F17.210 Nicotine dependence, cigarettes, uncomplicated; Z53.29 Procedure and treatment not carried out because of patient's decision for other reasons
CPT/HCPCS: 80053; 83690; 85027; 85610; 85730; 96374; 96375; 99284; J0360; J2270; J2405

== ENCOUNTER 2022-02-10 17:26 | Emergency (ER) | payer OTHER ==
[~2022-02-10] VITALS: Ht 165.1 cm; Wt 59.0 kg
[2022-02-10 18:08] LABS: PLATELET COUNT 400 K/uL (142-355)
[2022-02-10 22:40] VITALS: BP 159/11; TEMP 97.4
== END 2022-02-10 22:40 | disposition short-term general hospital (02) ==
LOC: ED 17:26
PROVIDERS: Emergency Medicine Emergency Medical Services
DX: I50.9 Heart failure, unspecified (principal); J18.9 Pneumonia, unspecified organism; N30.00 Acute cystitis without hematuria; Z11.52 Encounter for screening for COVID-19
CPT/HCPCS: 36415; 36600; 80053; 82150; 82805; 83690; 83735; 83880; 84484; 85027; 87040; 87635; 93005; 96365; 96366; 96375; 99284; J1956; J0360; J0696; J1940; J2270; J2405; U0003

== ENCOUNTER 2022-05-20 21:55 | Emergency (ER) | payer OTHER ==
[~2022-05-20] VITALS: Ht 165.1 cm; Wt 54.4 kg
[2022-05-20 22:00] VITALS: TEMP 99.2
[2022-05-20 22:54] VITALS: BP 77/41
== END 2022-05-20 22:54 | disposition home or self-care (01) ==
LOC: ED 21:55
DX: R10.32 Left lower quadrant pain (principal); G89.29 Other chronic pain
CPT/HCPCS: 99282

== ENCOUNTER 2022-06-29 14:05 | Emergency (ER) | payer OTHER ==
[~2022-06-29] VITALS: Ht 165.1 cm; Wt 54.9 kg
[2022-06-29 14:05] VITALS: BP 162/116; TEMP 98.3
== END 2022-06-29 14:45 | disposition home or self-care (01) ==
LOC: ED 14:05
DX: R10.31 Right lower quadrant pain (principal); N18.6 End stage renal disease; Z99.2 Dependence on renal dialysis; I10 Essential (primary) hypertension; E11.9 Type 2 diabetes mellitus without complications; Z79.4 Long term (current) use of insulin; F17.210 Nicotine dependence, cigarettes, uncomplicated
CPT/HCPCS: 99282

== ENCOUNTER 2022-08-06 02:14 | Emergency (ER) | payer OTHER ==
[~2022-08-06] VITALS: Ht 165.1 cm; Wt 54.4 kg
[2022-08-06 02:20] VITALS: BP 178/116; TEMP 99.4
== END 2022-08-06 03:40 | disposition home or self-care (01) ==
LOC: ED 02:14
DX: B34.9 Viral infection, unspecified (principal); N18.6 End stage renal disease; Z99.2 Dependence on renal dialysis; Z94.0 Kidney transplant status; Z20.822 Contact with and (suspected) exposure to COVID-19
CPT/HCPCS: 87502; 87635; 87651; 99283; U0003

== ENCOUNTER 2022-08-06 10:40 | Emergency (ER) | payer OTHER ==
[~2022-08-06] VITALS: Ht 165.1 cm; Wt 54.4 kg
[2022-08-06 10:45] VITALS: TEMP 99.1
[2022-08-06 11:51] LABS: PLATELET COUNT 254 K/uL (142-355)
[2022-08-06 12:03] LABS: POTASSIUM 3.8 mmol/L (3.6-5.2)
[2022-08-06 12:07] LABS: PARTIAL THROMBOPLASTIN TIME 31.1 SECONDS (24.5-33.6)
[2022-08-06 14:55] VITALS: BP 175/93
== END 2022-08-06 14:55 | disposition home or self-care (01) ==
LOC: ED 10:40
PROVIDERS: Emergency Medicine
DX: N39.0 Urinary tract infection, site not specified (principal); N30.90 Cystitis, unspecified without hematuria
CPT/HCPCS: 80053; 83690; 84484; 85027; 85610; 85730; 93005; 94664; 99283; J2930

== ENCOUNTER 2022-08-15 04:15 | Emergency (ER) | payer OTHER ==
[~2022-08-15] VITALS: Ht 165.1 cm; Wt 54.4 kg
[2022-08-15 04:15] VITALS: TEMP 98.5
[2022-08-15 05:01] LABS: PLATELET COUNT 281 K/uL (142-355)
[2022-08-15 05:18] LABS: PARTIAL THROMBOPLASTIN TIME 29.2 SECONDS (24.5-33.6)
[2022-08-15 07:20] VITALS: BP 151/91
== END 2022-08-15 07:20 | disposition home or self-care (01) ==
LOC: ED 04:15
PROVIDERS: Family Medicine
DX: J18.9 Pneumonia, unspecified organism (principal); J44.1 Chronic obstructive pulmonary disease with (acute) exacerbation; N18.6 End stage renal disease; Z99.2 Dependence on renal dialysis; F17.210 Nicotine dependence, cigarettes, uncomplicated
CPT/HCPCS: 36415; 80053; 82550; 84484; 85027; 85610; 85730; 93005; 94664; 96365; 96375; 99284; J0696; J2930

== ENCOUNTER 2022-08-16 10:08 | Emergency (ER) | payer OTHER ==
[~2022-08-16] VITALS: Ht 165.1 cm; Wt 54.4 kg
[2022-08-16 10:10] VITALS: TEMP 97.4
[2022-08-16 10:53] LABS: PLATELET COUNT 346 K/uL (142-355)
[2022-08-16 11:20] VITALS: BP 163/118
== END 2022-08-16 11:20 | disposition home or self-care (01) ==
LOC: ED 10:08
PROVIDERS: Emergency Medicine Emergency Medical Services
DX: J18.9 Pneumonia, unspecified organism (principal); J44.1 Chronic obstructive pulmonary disease with (acute) exacerbation; Z91.14 Patient's other noncompliance with medication regimen; F17.210 Nicotine dependence, cigarettes, uncomplicated
CPT/HCPCS: 85027; 94664; 96372; 99282; J0696; J2001

== ENCOUNTER 2022-09-20 20:15 | Emergency (ER) | payer OTHER ==
[~2022-09-20] VITALS: Ht 165.1 cm; Wt 44.5 kg
[2022-09-20 20:24] VITALS: BP 150/112; TEMP 98.8
[2022-09-20 21:15] LABS: PLATELET COUNT 279 K/uL (142-355)
[2022-09-20 21:27] LABS: POTASSIUM 5.5 mmol/L (3.6-5.2)
== END 2022-09-20 23:25 | disposition home or self-care (01) ==
LOC: ED 20:15
PROVIDERS: Emergency Medicine Emergency Medical Services
DX: M25.59 Pain in other specified joint (principal); B34.9 Viral infection, unspecified; Z20.822 Contact with and (suspected) exposure to COVID-19
CPT/HCPCS: 36415; 80048; 83735; 85027; 87502; 87635; 87651; 93005; 99283; U0003

== ENCOUNTER 2022-12-16 14:04 | Outpatient (CLI) | payer OTHER | END 2022-12-16 19:02 | disposition home or self-care (01) | LOC: LAB 14:04 | PROVIDERS: ATTEND Physician Assistant Medical | DX: E87.5 Hyperkalemia (principal) | CPT/HCPCS: 84132 ==